=== PATIENT | male | born 1955 | race African-American/Black ===

== ENCOUNTER 2018-09-28 20:36 | Emergency (ER) | payer OTHER | END 2018-09-28 22:00 | disposition home or self-care (01) | LOC: ERS 20:36 | DX: R10.13 Epigastric pain (principal); I10 Essential (primary) hypertension; J44.9 Chronic obstructive pulmonary disease, unspecified; E78.5 Hyperlipidemia, unspecified; F41.9 Anxiety disorder, unspecified; F32.9 Major depressive disorder, single episode, unspecified; F17.210 Nicotine dependence, cigarettes, uncomplicated | CPT/HCPCS: 99284 ==

== ENCOUNTER 2023-12-21 08:47 | Observation (INO) | payer MEDICARE, OTHER ==
[2023-12-21 11:50] VITALS: BMI 27.1
[2023-12-21] MEDS ORDERED: Insulin Lispro 100 UNIT/ML 10 ML VIAL SC PRN ×2 (12:57)
[2023-12-21] MEDS ORDERED: Dextrose 5% in Water 1,000 ML IV PRN (12:57)
[2023-12-21] MEDS ORDERED: Glucagon 1 MG/ML KIT IM PRN (12:57)
[2023-12-21] MEDS ORDERED: Dextrose 50% Abboject 50 ML SYRINGE SLOW IVP PRN (12:57)
[2023-12-21 13:28] LABS: Hemoglobin A1c 6.2 % (4.0-6.0)
[2023-12-21] MEDS: metFORMIN 500 MG TAB PO SCH (18:42)
[2023-12-21] MEDS ORDERED: Metoprolol Tartrate 50 MG TAB PO SCH (21:00)
[2023-12-21] MEDS: Nitroglycerin 2% Ointment 1 INCH/1 GM Packet TOP SCH (21:11)
[2023-12-21] MEDS: hydrALAZINE 25 MG TAB PO SCH (21:11)
[2023-12-21] MEDS: Warfarin Sodium 5 MG TAB PO SCH (22:14)
[2023-12-22] MEDS: hydrALAZINE 20 MG/ML VIAL SLOW IVP PRN (00:21)
[2023-12-22] MEDS: Acetaminophen 325 MG TAB PO PRN (01:41)
[2023-12-22 04:27] LABS: #Basophils Less than 0.03 10x3/uL (0.0-0.2); %Basophils 0.3 % (0.0-1.0); %Eosinophils 0.7 % (0.0-10.0); %Lymphocytes 10.4 % (21.0-51.0); %Monocytes 6.4 % (0.0-10.0); %Neutrophils 81.9 % (42.0-75.0); Hematocrit 36.6 % (42.0-52.0); Mean Corpuscular HGB CONC 32.8 g/dL (32.0-36.0); Mean Corpuscular Hemoglobin 29.5 pg (27.0-31.0); Mean Corpuscular Volume 89.9 fL (78.0-98.0); Mean Platelet Volume 11.2 fL (7.4-10.4); Platelet Count 219 10x3/uL (130-400); RBC Distribution Width 14.6 % (11.5-14.5); Red Blood Cell (RBC) Count 4.07 mill/uL (4.70-6.10)
[2023-12-22 04:40] LABS: INR-International Normal Ratio 2.6; Prothrombin Time 28.1 sec (12.0-14.7)
[2023-12-22 04:43] LABS: Anion Gap 10 mmol/L (10-20); BUN (Urea Nitrogen) 13 mg/dL (8.4-25.7); Calc. Creatinine Clearance 58 mL/min (70-130); Calcium 9.1 mg/dL (7.8-10.44); Carbon Dioxide 22 mmol/L (23-31); Cardiac Risk 3.9 (Less than 4.5); Chloride 107 mmol/L (98-107); Cholesterol 199 mg/dl (< 200 Desired); Estimated GFR 63; Glucose 108 mg/dL (80-115); HDL Cholesterol 51 mg/dL (>60 Neg Risk); LDL Cholesterol, Calculated 132 mg/dL; Sodium 135 mmol/L (136-145); Triglycerides 79 mg/dL (Less than 150)
[2023-12-22] MEDS: Furosemide 40 MG TAB PO SCH (08:57)
[2023-12-22] MEDS: Aspirin 81 mg Enteric Coated Tablet PO SCH (08:58)
[2023-12-22] MEDS: Insulin Glargine 30 UNITS/0.3 ML VIAL SC SCH (08:59)
[2023-12-22 09:22] VITALS: BP 151/87; TEMP 97.7
[2023-12-22] MEDS ORDERED: Regadenoson 0.4 MG/5 ML SYRINGE ONE (12:58)
[2023-12-22] MEDS ORDERED: Warfarin Sodium 10 MG TAB PO SCH (17:00)
[2023-12-25] MEDS ORDERED: Warfarin Sodium 7.5 MG TAB PO SCH (17:00)
== END 2023-12-22 17:23 | disposition left against medical advice (07) ==
LOC: 2SW 11:34 → OBS 12-22 11:07
PROVIDERS: ADMIT Family Medicine; ATTEND Family Medicine
DX: R07.89 Other chest pain (principal); I11.0 Hypertensive heart disease with heart failure; I50.30 Unspecified diastolic (congestive) heart failure; I16.0 Hypertensive urgency; E78.5 Hyperlipidemia, unspecified; E11.9 Type 2 diabetes mellitus without complications; E87.6 Hypokalemia; D64.9 Anemia, unspecified; Z88.8 Allergy status to other drugs, medicaments and biological substances; Z90.49 Acquired absence of other specified parts of digestive tract; Z95.2 Presence of prosthetic heart valve; Z79.82 Long term (current) use of aspirin; Z79.01 Long term (current) use of anticoagulants; Z79.4 Long term (current) use of insulin; Z79.84 Long term (current) use of oral hypoglycemic drugs; Z79.899 Other long term (current) drug therapy
CPT/HCPCS: 78452; 80048; 80061; 82962 ×2; 83036; 84443; 85025; 85610; 93005; 93017; 96374; A9500; G0378 ×2; J0360; J2785 ×2; 36415; 36416; 93010; J1815